=== PATIENT | female | born 1940 | race Hispanic/Latino ===

== ENCOUNTER 2021-02-17 20:36 | Emergency (ER) | payer OTHER ==
[~2021-02-17] VITALS: Ht 152.4 cm; Wt 69.9 kg
[2021-02-17] MEDS ORDERED: GABAPENTIN 100 MG CAP ONE (23:13)
[2021-02-17] MEDS ORDERED: GABAPENTIN 100 MG CAP PO STA (23:52)
== END 2021-02-17 23:50 | disposition home or self-care (01) ==
LOC: ER 23:07
DX: E11.42 Type 2 diabetes mellitus with diabetic polyneuropathy (principal); Z88.0 Allergy status to penicillin
CPT/HCPCS: 99282